=== PATIENT | female | born 2000 | race Caucasian/White ===

== ENCOUNTER 2019-07-25 14:00 | Emergency (ER) | payer OTHER ==
[~2019-07-25] VITALS: Ht 160 cm; Wt 51.8 kg
[2019-07-25 14:30] VITALS: BP 116/70
--- NOTE | 2019-07-25 14:39 | NUR ---
WAIT AT LOBBY.
--- NOTE | 2019-07-25 15:06 | NUR ---
Patient ambulated to bed 1 with family. RN evaluating patient at bedside.
--- NOTE | 2019-07-25 15:10 | NUR ---
18/F TO ED WITH C/O HEADACHE X 2 DAYS. DENIES INJURY/TRAUMA. NO NEURO DEFICITS NOTED. PT C/O NAUSEA WITH HEADACHE. P[employer] STRONG BILATERALLY. SPEECH CLEAR. NO FACIAL ASYMMETRY NOTED. IN BED FOR MD WHITLOCK.
--- NOTE | 2019-07-25 16:04 | NUR ---
The patient, accompanied by female ems driver, was taken to CT scan via wheelchair by tech.
--- NOTE | 2019-07-25 16:05 | NUR ---
PT TO CT VIA WC
--- NOTE | 2019-07-25 16:15 | NUR ---
RETURED FROM CT VIA WC
[2019-07-25] MEDS ORDERED: METOCLOPRAMIDE 10 MG TAB PO ONE (16:45)
[2019-07-25] MEDS ORDERED: KETOROLAC 30 MG/ML VIAL IM ONE (16:45)
--- NOTE | 2019-07-25 17:08 | NUR ---
PT LAYING IN BED, RR EVEN AND UNLABORED. VSS. REPORTS 4/10 HEADACHE. ADMINISTERED MEDS ORDERED WITH EDUCATION. PT VERBALIZED UNDERSTANDING. PA SINGH AT BEDSIDE TO SPEAK WITH PT.
[2019-07-25 17:34] VITALS: BP 102/68
--- NOTE | 2019-07-25 17:36 | NUR ---
Patient discharged with v/s stable. Written and verbal after care instructions given and explained. Patient alert, oriented and verbalized understanding of instructions. Ambulatory with steady gait. All questions addressed prior to discharge. ID band removed. Patient advised to follow up with PMD. Rx of VISTARIL given. Patient educated on indication of medication including possible reaction and side effects. Opportunity to ask questions provided and answered.
== END 2019-07-25 17:36 | disposition home or self-care (01) ==
LOC: MED 14:00
DX: R51 Headache (principal); R11.0 Nausea
CPT/HCPCS: 70450; 81002; 81025; 96372; 99284; J1885; J8597